=== PATIENT | male | born 1960 | race Caucasian/White ===

== ENCOUNTER 2020-04-13 09:22 | Day surgery (SDC) | payer MEDICAID ==
[2020-04-12 11:46] LABS: BASOPHILS # (AUTO) 0.1 X10'3 (0-0.2); BASOPHILS % (AUTO) 0.9 % (0-1); EOSINOPHILS # (AUTO) 0.1 X10'3 (0-0.9); EOSINOPHILS % (AUTO) 1.8 % (0-6); HEMATOCRIT 47.3 % (42.0-52.0); HEMOGLOBIN 15.8 g/dl (14.0-17.9); LYMPHOCYTES # (AUTO) 1.4 X10'3 (1.1-4.8); LYMPHOCYTES % (AUTO) 22.7 % (21-51); MEAN CORPUSCULAR HEMOGLOBIN 30.9 PG (27.0-31.0); MEAN CORPUSCULAR HGB CONC 33.4 g/dL (33.0-36.5); MEAN CORPUSCULAR VOLUME 92.6 FL (78-98); MEAN PLATELET VOLUME 8.2 FL (7.4-10.4); MONOCYTES # (AUTO) 0.5 X10'3 (0-0.9); MONOCYTES % (AUTO) 7.5 % (2-12); NEUTROPHILS # (AUTO) 4.1 X10'3 (1.8-7.7); NEUTROPHILS % (AUTO) 67.1 % (42-75); PLATELET COUNT 305 X10'3 (140-440); RED BLOOD COUNT 5.11 X10'6 (4.70-6.10); RED CELL DISTRIBUTION WIDTH 13.5 % (11.5-14.5); WHITE BLOOD COUNT 6.2 X10'3 (4.5-11.0)
[2020-04-12 11:58] LABS: PARTIAL THROMBOPLASTIN TIME 27 SECONDS (22-32)
[2020-04-12 12:01] LABS: ALANINE AMINOTRANSFERASE 41 U/L (12-78); ALBUMIN 4.7 G/DL (3.4-5.0); ALBUMIN/GLOBULIN RATIO 1.3 (1.1-1.5); ALKALINE PHOSPHATASE 93 IU/L (46-116); ANION GAP 6 (8-16); ASPARTATE AMINO TRANSFERASE 26 U/L (10-37); BILIRUBIN,TOTAL 0.6 MG/DL (0.1-1.0); BLOOD UREA NITROGEN 17 MG/DL (7-18); BUN/CREATININE RATIO 17.7 (5.4-32.0); CALCIUM 9.6 MG/DL (8.5-10.1); CHLORIDE 108 MMOL/L (99-107); CREATININE 0.96 MG/DL (0.60-1.10); GLUCOSE 103 MG/DL (70-104); POTASSIUM 3.7 MMOL/L (3.5-5.1); SODIUM 143 MMOL/L (135-145); TOTAL CARBON DIOXIDE 29.1 MMOL/L (24-32); TOTAL PROTEIN 8.4 G/DL (6.4-8.2); eGFR 80 ML/MIN
[~2020-04-13] VITALS: Ht 175.3 cm; Wt 84.3 kg
[2020-04-13] VITALS (11 sets, daily range): BP systolic 106–156; BP diastolic 51–80
[~2020-04-13 09:22] MED LIST: FLUO20CA39 PO; FLUT1DIS4 INH; HYDR-4383 PO; MONT10TA26 PO; SIMV-42 PO
[2020-04-13] MEDS ORDERED: LORazepam 0.5 MG tablet PO PRN (09:45)
[2020-04-13] MEDS ORDERED: normal saline 1,000 ML IV SCH (09:45)
[2020-04-13] MEDS ORDERED: nitroGLYCERIN 0.4mg SUBLingual tab SL PRN ×2 (09:45→12:00)
[2020-04-13] MEDS ORDERED: diphenhydrAMINE 25mg capsule PO PRN (09:45)
[2020-04-13] MEDS ORDERED: ROSU20TA2 PO (09:51)
[2020-04-13] MEDS ORDERED: CYAN50008 PO (09:51)
[2020-04-13] MEDS ORDERED: LOSA1TAB41 PO (09:51)
[2020-04-13] MEDS ORDERED: CHOL400T (09:51)
[2020-04-13] MEDS ORDERED: iohexol 350MG/ML 100ml bottle IV ONE (10:31)
[2020-04-13] MEDS ORDERED: midazolam 2 mg/2 ml injection ONE (10:31)
[2020-04-13] MEDS ORDERED: LIDOcaine 1% (10mg/ml)w/preservative injection 20ml MDV ONE (10:31)
[2020-04-13] MEDS ORDERED: iohexol 350 MG/ML 50ML vial IV ONE (10:31)
[2020-04-13] MEDS ORDERED: fentaNYL/PF 50MCG/1 ML 2ML syringe ONE (10:31)
[2020-04-13] MEDS ORDERED: OXAZEpam 15mg capsule PO PRN (12:00)
[2020-04-13] MEDS ORDERED: ondansetron/PF 4mg/2ml inj IV PRN (12:00)
[2020-04-13] MEDS ORDERED: sodium chloride 0.45% 1,000 ML IV SCH (12:00)
[2020-04-13] MEDS ORDERED: proCHLORperazine 10 MG/2 ml inj IV PRN (12:00)
[2020-04-13] MEDS ORDERED: HYDROcodone/acetaminophen 5mg/325mg tablet PO PRN (12:00)
[2020-04-13] MEDS ORDERED: HYDROcodone/acetaminophen 10/325mg tab PO PRN (12:00)
== END 2020-04-13 17:55 | disposition home or self-care (01) ==
LOC: SSTAY O 09:22
PROVIDERS: ATTEND Internal Medicine Cardiovascular Disease
DX: R94.39 Abnormal result of other cardiovascular function study (principal); I25.10 Atherosclerotic heart disease of native coronary artery without angina pectoris; I44.7 Left bundle-branch block, unspecified; I42.9 Cardiomyopathy, unspecified; I10 Essential (primary) hypertension; E78.5 Hyperlipidemia, unspecified; J44.9 Chronic obstructive pulmonary disease, unspecified; F32.9 Major depressive disorder, single episode, unspecified; Z79.01 Long term (current) use of anticoagulants; Z79.899 Other long term (current) drug therapy; Z87.891 Personal history of nicotine dependence; Z90.49 Acquired absence of other specified parts of digestive tract; Z98.890 Other specified postprocedural states; R06.02 Shortness of breath
CPT/HCPCS: 36415; 71046; 80053; 83880; 85025; 85610; 85730; 93005; 93458; 99152; C1760; C1769; J1644; J2001; J2250; J3010; J7030; Q0163; Q9967; 99153; A4620; A6258